=== PATIENT | male | born 1940 | race Caucasian/White ===

== ENCOUNTER 2017-08-17 08:19 | Emergency (ER) | payer MEDICARE, BC ==
[~2017-08-17] VITALS: Ht 175.3 cm; Wt 71.4 kg
[~2017-08-17 08:19] MED LIST: ANTIVERT 25MG25 MG PO; CALCIUM CARBON500 M1 PO; CARDI-OMEGA1000 MG PO; CENTRUM SILVER1 CTB PO; CENTRUM SILVER1 TA1 PO; FISH OIL CONC1000 MG PO; FLOMAX 0.40.4 MG/CAP PO; GEMCOR600 MG PO; LISINOPRIL/HCTZ1 TA2 PO; LISINOPRIL/HCTZ1 TAB PO; MVI; NORCO 325 MG-51 TAB PO; OSTEO-BI-FLEX 21 TAB; OSTEO-BI-FLEX 21 TAB PO; PERCOCET 5/321 UDTAB PO; PRAVACHOL 20MG20 MG PO; PRAVACHOL 40MG40 MG PO; PRILOSEC 20MG20 MG PO; TRAMADOL50 MG PO; TYLENOL 500MG500 MG PO; ZETIA 10MG TAB10 MG PO; ZETIA10 MG PO; [UNRECOGNIZED DRUG - OTHER] OP; lidocaine patch; osteo biflex
[2017-08-17 08:28] VITALS: TEMP 96.8
[2017-08-17 09:09] LABS: BASO % 0.5 % (0.0-2.0); EOS # 0.1 (0.0-0.7); EOS % 1.3 % (0-4.0); GRAN # 4.1 (1.4-6.5); GRAN % 47.3 % (42.2-75.2); HEMATOCRIT 39.9 % (42.0-52.0); HEMOGLOBIN 13.7 g/dl (13.5-18.0); LYMPH # 3.7 (1.2-3.4); LYMPH % 43.2 % (20.0-51.0); MEAN CELL VOLUME 91 fl (80.0-100.0); MEAN CORPUSCULAR HEMOGLOBIN 31 pg (27.0-31.0); MEAN CORPUSCULAR HGB CONC 34 g/dl (33.0-37.0); MONO # 0.6 (0.1-0.6); MONO % 7.5 % (1.7-9.3); PLATELET COUNT 271 K/mm3 (130-400); RED BLOOD COUNT 4.38 M/mm3 (4.20-5.60); REDCELL DISTRIBUTION WIDTH-CV 12.5 % (11.5-14.5)
[2017-08-17 09:20] LABS: ALANINE AMINOTRANSFERASE 28 U/L (21-72); ALBUMIN 4.1 gm/dL (3.5-5.0); ALKALINE PHOSPHATASE 131 U/L (50-136); ANION GAP 15 mmol/L (7-16); AST,SGOT 29 U/L (15-37); BILIRUBIN,TOTAL 0.6 mg/dL (0.0-1.0); BLOOD UREA NITROGEN 17 mg/dL (9-20); CALCIUM 9.2 mg/dL (8.4-10.2); CARBON DIOXIDE 26 mmol/L (22-30); CHLORIDE 104 mmol/L (98-107); CREATININE, serum 0.92 mg/dL (0.66-1.25); GLUCOSE 92 mg/dL (74-106); LIPASE 57 U/L (23-300); POTASSIUM 3.9 mmol/L (3.4-5.0); SODIUM 145 mmol/L (137-145); TOTAL PROTEIN 7.7 gm/dL (6.4-8.2)
[2017-08-17] MEDS ORDERED: ULTRAM 50MG TAB50 MG PO (09:20)
[2017-08-17] MEDS ORDERED: FLOMAX 0.40.4 MG/CAP PO (09:20)
[2017-08-17] MEDS ORDERED: PRILOSEC 20MG20 MG PO (09:21)
[2017-08-17] MEDS ORDERED: MULTI VITAMINS1 TAB PO (09:21)
[2017-08-17] MEDS ORDERED: PRAVACHOL 40MG40 MG PO (09:21)
[2017-08-17] MEDS ORDERED: NORCO 325 MG-51 TAB PO (09:22)
[2017-08-17] MEDS ORDERED: PRINZIDE 12.5 M1 TAB PO (09:22)
[2017-08-17] MEDS ORDERED: ZETIA 10MG TAB10 MG PO (09:23)
[2017-08-17] MEDS ORDERED: ZYRTEC 10MG10 MG PO (09:23)
[2017-08-17] MEDS ORDERED: TEMOVATE0.05% TP (09:23)
[2017-08-17] MEDS ORDERED: LOPID 600M600 MG/TAB PO (09:23)
[2017-08-17] MEDS ORDERED: TYLENOL 325MG325 MG PO (09:27)
[2017-08-17] MEDS ORDERED: CALCIUM CARBON650 M2 (09:27)
[2017-08-17] MEDS ORDERED: VITAMINC1000TA (09:27)
[2017-08-17 09:34] LABS: TROPONIN-I < 0.012 ng/mL (0.000-0.034)
[2017-08-17 12:56] VITALS: BP 151/86; PULSE 76
== END 2017-08-17 12:57 | disposition home or self-care (01) ==
LOC: COL.ER 08:19
PROVIDERS: Emergency Medicine
DX: R07.89 Other chest pain (principal); I10 Essential (primary) hypertension; E78.5 Hyperlipidemia, unspecified; K21.9 Gastro-esophageal reflux disease without esophagitis; K58.9 Irritable bowel syndrome, unspecified; Z90.49 Acquired absence of other specified parts of digestive tract; Z90.89 Acquired absence of other organs
CPT/HCPCS: J7030

== ENCOUNTER 2017-10-05 01:26 | Emergency (ER) | payer MEDICARE, BC ==
[~2017-10-05] VITALS: Ht 175.3 cm; Wt 73.6 kg
[~2017-10-05 01:26] MED LIST changes: +CALCIUM CARBON650 M2; +LOPID 600M600 MG/TAB PO; +MULTI VITAMINS1 TAB PO; +PRINZIDE 12.5 M1 TAB PO; +TEMOVATE0.05% TP; +TYLENOL 325MG325 MG PO; +ULTRAM 50MG TAB50 MG PO; +VITAMINC1000TA; +ZYRTEC 10MG10 MG PO
[2017-10-05 01:29] VITALS: TEMP 97.6
[2017-10-05 01:55] LABS: BASO % 0.3 % (0.0-2.0); EOS # 0.2 (0.0-0.7); EOS % 1.7 % (0-4.0); GRAN # 6.8 (1.4-6.5); GRAN % 51.9 % (42.2-75.2); HEMATOCRIT 36.6 % (42.0-52.0); HEMOGLOBIN 12.5 g/dl (13.5-18.0); LYMPH # 4.8 (1.2-3.4); LYMPH % 36.7 % (20.0-51.0); MEAN CELL VOLUME 91 fl (80.0-100.0); MEAN CORPUSCULAR HEMOGLOBIN 31 pg (27.0-31.0); MEAN CORPUSCULAR HGB CONC 34 g/dl (33.0-37.0); MEAN PLATELET VOLUME 9.7 fl (7.4-10.4); MONO # 1.2 (0.1-0.6); MONO % 9.1 % (1.7-9.3); PLATELET COUNT 265 K/mm3 (130-400); RED BLOOD COUNT 4.01 M/mm3 (4.20-5.60); REDCELL DISTRIBUTION WIDTH-CV 12.7 % (11.5-14.5)
[2017-10-05 02:06] LABS: ALANINE AMINOTRANSFERASE 34 U/L (21-72); ALKALINE PHOSPHATASE 114 U/L (50-136); ANION GAP 11 mmol/L (7-16); AST,SGOT 28 U/L (15-37); BILIRUBIN,TOTAL 0.3 mg/dL (0.0-1.0); BLOOD UREA NITROGEN 28 mg/dL (9-20); CALCIUM 9.1 mg/dL (8.4-10.2); CARBON DIOXIDE 28 mmol/L (22-30); CHLORIDE 102 mmol/L (98-107); CREATININE, serum 1.14 mg/dL (0.66-1.25); GLUCOSE 100 mg/dL (74-106); LIPASE 71 U/L (23-300); POTASSIUM 3.7 mmol/L (3.4-5.0); SODIUM 140 mmol/L (137-145); TOTAL PROTEIN 7.3 gm/dL (6.4-8.2)
[2017-10-05 02:07] LABS: C-REACTIVE PROTEIN < 0.5 mg/dL (0.0-0.9)
[2017-10-05 02:15] LABS: TROPONIN-I < 0.012 ng/mL (0.000-0.034)
[2017-10-05 04:00] VITALS: BP 106/76; PULSE 60
[2017-10-05] MEDS ORDERED: MYRBETR50MG PO (04:32)
[2017-10-05] MEDS ORDERED: PRAVACHOL 20MG20 MG PO (04:33)
== END 2017-10-05 04:26 | disposition home or self-care (01) ==
LOC: COL.ER 01:26
PROVIDERS: Emergency Medicine
DX: M54.6 Pain in thoracic spine (principal); I10 Essential (primary) hypertension; E78.5 Hyperlipidemia, unspecified

== ENCOUNTER 2019-06-10 22:53 | Emergency (ER) | payer MEDICARE, BC ==
[~2019-06-10] VITALS: Ht 175.3 cm; Wt 60.0 kg
[~2019-06-10 22:53] MED LIST changes: +MYRBETR50MG PO
[2019-06-10 23:03] VITALS: TEMP 97.6
[2019-06-10 23:49] LABS: BASO % 0.4 % (0.0-2.0); EOS # 0.2 (0.0-0.7); EOS % 1.8 % (0-4.0); GRAN # 4.7 (1.4-6.5); GRAN % 49.8 % (42.2-75.2); HEMATOCRIT 41.5 % (42.0-52.0); HEMOGLOBIN 13.6 g/dl (13.5-18.0); LYMPH # 3.6 (1.2-3.4); LYMPH % 38.2 % (20.0-51.0); MEAN CELL VOLUME 93 fl (80.0-100.0); MEAN CORPUSCULAR HEMOGLOBIN 31 pg (27.0-31.0); MEAN CORPUSCULAR HGB CONC 33 g/dl (33.0-37.0); MEAN PLATELET VOLUME 10.4 fl (7.4-10.4); MONO # 0.9 (0.1-0.6); MONO % 9.6 % (1.7-9.3); PLATELET COUNT 211 K/mm3 (130-400); RED BLOOD COUNT 4.46 M/mm3 (4.20-5.60); REDCELL DISTRIBUTION WIDTH-CV 13.2 % (11.5-14.5)
[2019-06-10 23:58] LABS: PROTHROMBIN TIME 11.5 SECONDS (9.7-12.8)
[2019-06-10 23:59] LABS: POTASSIUM 4.6 mmol/L (3.4-5.0)
[2019-06-11] LABS: PARTIAL THROMBOPLASTIN TIME 34.3 SECONDS (26.0-37.0)
[2019-06-11 00:11] LABS: TROPONIN-I 0.02 ng/mL (0.000-0.035)
[2019-06-11 02:40] VITALS: BP 137/81; PULSE 61
== END 2019-06-11 01:20 | disposition home or self-care (01) ==
LOC: COL.ER 22:53
PROVIDERS: Physician Assistant
DX: R53.1 Weakness (principal); Z90.89 Acquired absence of other organs
CPT/HCPCS: J7040; Q9967

== ENCOUNTER → 2019-06-28 | Outpatient (CLI) | payer MEDICARE, BC | LOC: COL.RAD 08:15 | DX: Z01.812 Encounter for preprocedural laboratory examination (principal); M25.571 Pain in right ankle and joints of right foot; I63.9 Cerebral infarction, unspecified | CPT/HCPCS: A9585 ==

== ENCOUNTER 2019-10-15 10:07 | Emergency (ER) | payer MEDICARE, BC ==
[~2019-10-15] VITALS: Ht 175.3 cm; Wt 73.6 kg
[2019-10-15 10:13] VITALS: TEMP 97.4
[2019-10-15 10:43] LABS: COLLECTION METHOD CLEAN CATCH
[2019-10-15 10:54] LABS: PH 7 (5-8); SQUAMOUS EPITHELIAL None Seen /hpf; URINE APPEARANCE Clear; URINE BACTERIA None Seen /hpf; URINE BILIRUBIN Negative (NEGATIVE); URINE BLOOD Negative (NEGATIVE); URINE COLOR Straw; URINE GLUCOSE Negative (NEGATIVE); URINE KETONE Negative (NEGATIVE); URINE LEUKOCYTE ESTERASE Negative (NEGATIVE); URINE NITRATE Negative (NEGATIVE); URINE PROTEIN(semi-quant) Negative (NEGATIVE); URINE RBC 0-2 /hpf; URINE UROBILINOGEN Negative (NEGATIVE)
[2019-10-15 11:00] LABS: ALBUMIN 4.4 gm/dL (3.5-5.0); BILIRUBIN,TOTAL 0.8 mg/dL (0.0-1.0); CALCIUM 9.5 mg/dL (8.4-10.2); CREATININE, serum 0.97 (0.66-1.25); MAGNESIUM 2.2 mg/dL (1.6-2.3); POTASSIUM 4.3 mmol/L (3.4-5.0); TOTAL PROTEIN 7.7 gm/dL (6.4-8.2)
[2019-10-15 11:08] LABS: BASO % 0.4 % (0.0-2.0); EOS # 0.1 (0.0-0.7); EOS % 0.9 % (0-4.0); GRAN # 5.4 (1.4-6.5); GRAN % 59.4 % (42.2-75.2); HEMOGLOBIN 14.9 g/dl (13.5-18.0); LYMPH # 3.1 (1.2-3.4); LYMPH % 33.9 % (20.0-51.0); MEAN CELL VOLUME 94 fl (80.0-100.0); MEAN CORPUSCULAR HEMOGLOBIN 31 pg (27.0-31.0); MEAN CORPUSCULAR HGB CONC 32 g/dl (33.0-37.0); MEAN PLATELET VOLUME 10.7 fl (7.4-10.4); MONO # 0.5 (0.1-0.6); MONO % 5.1 % (1.7-9.3); PLATELET COUNT 254 K/mm3 (130-400); RED BLOOD COUNT 4.88 M/mm3 (4.20-5.60); REDCELL DISTRIBUTION WIDTH-CV 13.2 % (11.5-14.5)
[2019-10-15 11:11] LABS: TROPONIN-I 0.018 ng/mL (0.000-0.035)
[2019-10-15 15:24] VITALS: BP 174/100; PULSE 62
== END 2019-10-15 15:18 | disposition home or self-care (01) ==
LOC: COL.ER 10:07
PROVIDERS: Emergency Medicine
DX: R42 Dizziness and giddiness (principal); I10 Essential (primary) hypertension
CPT/HCPCS: J7030

== ENCOUNTER 2020-06-25 08:39 | Day surgery (SDC) | payer MEDICARE, BC ==
[~2020-06-25] VITALS: Ht 175.3 cm; Wt 81.9 kg
[2020-06-25] VITALS (15 sets, daily range): BP systolic 142–179; BP diastolic 72–99; PULSE 56–76; TEMP 97.4
[2020-06-25 09:52] LABS: HEMATOCRIT 43.2 % (42.0-52.0); HEMOGLOBIN 14.5 g/dl (13.5-18.0); MEAN CELL VOLUME 92 fl (80.0-100.0); MEAN CORPUSCULAR HEMOGLOBIN 31 pg (27.0-31.0); MEAN CORPUSCULAR HGB CONC 34 g/dl (33.0-37.0); MEAN PLATELET VOLUME 9.9 fl (7.4-10.4); PLATELET COUNT 243 K/mm3 (130-400); RED BLOOD COUNT 4.69 M/mm3 (4.20-5.60); REDCELL DISTRIBUTION WIDTH-CV 13.1 % (11.5-14.5)
[2020-06-25 10:00] LABS: INR 1.1 (0.8-3.0); PROTHROMBIN TIME 12.1 SECONDS (9.7-12.8)
[2020-06-25 10:02] LABS: PARTIAL THROMBOPLASTIN TIME 31.4 SECONDS (26.0-37.0)
[2020-06-25 10:23] LABS: CALCIUM 8.9 mg/dL (8.4-10.2); CREATININE, serum 0.86 (0.66-1.25); POTASSIUM 4.2 mmol/L (3.4-5.0)
[2020-06-25] MEDS ORDERED: ASPIRIN E.C. 8181 MG PO (10:31)
[2020-06-25] MEDS ORDERED: LIPITOR 40MG TA40 MG PO (10:32)
[2020-06-25] MEDS ORDERED: ZESTRIL 5MG5 MG PO (10:32)
[2020-06-25] MEDS ORDERED: NAMENDA 10MG TA10 MG PO (10:32)
--- NOTE | 2020-06-25 11:11 | NUR ---
SEE MERGE DOCUMENTATION FOR MEDICATION ADMINISTRATION TIMES AND INTRA/POST PROCEDURE SEDATION ASSESSMENTS. BARBEAU TEST NEGATIVE; MD ASSESSING PT AND PLANS FOR FEMORAL ACCESS.
[2020-06-25] MEDS ORDERED: LIPITOR 80MG80 MG PO (11:53)
[2020-06-25] MEDS ORDERED: NORVASC2.5 MG PO (11:54)
--- NOTE | 2020-06-25 15:12 | NUR ---
Pt has c/o urge to void over last hr, with no success using urinal. Bladder scan completed with read of 339 ml.
--- NOTE | 2020-06-25 17:10 | NUR ---
DC instructions reviewed with pt and , both express understanding. Pt was able to use urinal with success at this time, giving him relief. He will continue with final hour of bedrest. Report given to GLADYS Lynn, so she may take over pt cares while he remains in the [place], prior to his discharge. Written rx for nitro given to pt's , and copy placed in chart.
--- NOTE | 2020-06-25 17:29 | NUR ---
Pt accidently pulled IV out at this time, while also unhooking himself from BP and SPO2 monitors just after staff and his had stepped out of room. Bleeding controlled at IV site, and it is wrapped with coban. Pt reoriented and BP cuff reapplied. now at bedside.
--- NOTE | 2020-06-25 18:30 | NUR ---
Pt getting dressed and getting car to transport home.
--- NOTE | 2020-06-25 18:50 | NUR ---
Transferred to private car by malgorzata
== END 2020-06-25 18:50 | disposition home or self-care (01) ==
LOC: COL.CAR 08:39
PROVIDERS: Internal Medicine Cardiovascular Disease
DX: I25.10 Atherosclerotic heart disease of native coronary artery without angina pectoris (principal); R55 Syncope and collapse; K21.9 Gastro-esophageal reflux disease without esophagitis; E78.5 Hyperlipidemia, unspecified; I12.9 Hypertensive chronic kidney disease with stage 1 through stage 4 chronic kidney disease, or unspecified chronic kidney disease; E78.00 Pure hypercholesterolemia, unspecified; N18.2 Chronic kidney disease, stage 2 (mild); K58.9 Irritable bowel syndrome, unspecified; C95.10 Chronic leukemia of unspecified cell type not having achieved remission; Z90.89 Acquired absence of other organs; Z90.49 Acquired absence of other specified parts of digestive tract; Z88.5 Allergy status to narcotic agent; Z88.1 Allergy status to other antibiotic agents; Z20.822 Contact with and (suspected) exposure to COVID-19; Z79.899 Other long term (current) drug therapy; Z80.0 Family history of malignant neoplasm of digestive organs
CPT/HCPCS: C1760; C1769; C1894; J1644; J2250; J3010; L1830; Q9967

== ENCOUNTER → 2020-07-01 | Outpatient (CLI) | payer MEDICARE, BC ==
[~2020-07-01] MED LIST changes: +ASPIRIN E.C. 8181 MG PO; +CENTRUM SILVER1 TAB; +IMDUR 30MG30 MG/TAB PO; +LIPITOR 40MG TA40 MG PO; +LIPITOR 80MG80 MG PO; +MASON NATURAL2000 IU PO; +MIRALAX510G PO; +NAMENDA 10MG TA10 MG PO; +NITROSTAT0.4 MG/TAB SL; +NORVASC2.5 MG PO; +PLAVIX 75MG TAB75 MG PO; +ZESTRIL 5MG5 MG PO
== END ==
LOC: COL.VAS 13:16
DX: I25.10 Atherosclerotic heart disease of native coronary artery without angina pectoris (principal); I51.7 Cardiomegaly; I34.8 Other nonrheumatic mitral valve disorders

== ENCOUNTER 2020-07-27 11:25 | Emergency (ER) | payer MEDICARE, BC ==
[~2020-07-27] VITALS: Ht 175.3 cm; Wt 79.5 kg
[~2020-07-27 11:25] MED LIST changes: -CENTRUM SILVER1 TAB; -IMDUR 30MG30 MG/TAB PO; -MASON NATURAL2000 IU PO; -MIRALAX510G PO; -NITROSTAT0.4 MG/TAB SL; -PLAVIX 75MG TAB75 MG PO
[2020-07-27 11:39] VITALS: TEMP 97.8
[2020-07-27 11:56] LABS: BASO % 0.2 % (0.0-2.0); EOS # 0.1 (0.0-0.7); EOS % 0.7 % (0-4.0); GRAN # 8.8 (1.4-6.5); GRAN % 68.4 % (42.2-75.2); HEMOGLOBIN 14.5 g/dl (13.5-18.0); LYMPH # 3.2 (1.2-3.4); LYMPH % 25.2 % (20.0-51.0); MEAN CELL VOLUME 93 fl (80.0-100.0); MEAN CORPUSCULAR HEMOGLOBIN 31 pg (27.0-31.0); MEAN CORPUSCULAR HGB CONC 33 g/dl (33.0-37.0); MONO # 0.7 (0.1-0.6); MONO % 5.2 % (1.7-9.3); PLATELET COUNT 256 K/mm3 (130-400); RED BLOOD COUNT 4.73 M/mm3 (4.20-5.60); REDCELL DISTRIBUTION WIDTH-CV 12.9 % (11.5-14.5)
[2020-07-27 12:11] LABS: ALANINE AMINOTRANSFERASE 33 U/L (4-49); ALBUMIN 4.3 gm/dL (3.5-5.0); ALKALINE PHOSPHATASE 196 U/L (50-136); ANION GAP 8 mmol/L (7-16); AST,SGOT 49 U/L (15-37); BILIRUBIN,TOTAL 1.1 mg/dL (0.0-1.0); BLOOD UREA NITROGEN 22 mg/dL (9-20); CALCIUM 8.9 mg/dL (8.4-10.2); CARBON DIOXIDE 23 mmol/L (22-30); CHLORIDE 107 mmol/L (98-107); CREATININE, serum 1.01 (0.66-1.25); GLUCOSE 112 mg/dL (74-106); LIPASE 68 U/L (23-300); POTASSIUM 4.3 mmol/L (3.4-5.0); SODIUM 138 mmol/L (137-145); TOTAL PROTEIN 7.7 gm/dL (6.4-8.2)
[2020-07-27 12:22] LABS: TROPONIN-I < 0.012 ng/mL (0.000-0.035)
[2020-07-27 14:20] LABS: COLLECTION METHOD CLEAN CATCH
[2020-07-27 14:30] LABS: MUCOUS Present /lpf; SQUAMOUS EPITHELIAL 0-2 /hpf; URINE BACTERIA Rare /hpf; URINE RBC 0-2 /hpf
[2020-07-27 14:32] LABS: PH 5 (5-8); URINE APPEARANCE Clear; URINE BILIRUBIN Negative (NEGATIVE); URINE BLOOD Negative (NEGATIVE); URINE COLOR Yellow; URINE GLUCOSE Negative (NEGATIVE); URINE KETONE Trace (NEGATIVE); URINE LEUKOCYTE ESTERASE Negative (NEGATIVE); URINE NITRATE Negative (NEGATIVE); URINE PROTEIN(semi-quant) Negative (NEGATIVE); URINE UROBILINOGEN Negative (NEGATIVE)
[2020-07-27 15:12] VITALS: BP 143/87; PULSE 69
== END 2020-07-27 15:15 | disposition home or self-care (01) ==
LOC: COL.ER 11:25
PROVIDERS: Emergency Medicine
DX: R19.7 Diarrhea, unspecified (principal); Z79.82 Long term (current) use of aspirin; Z88.2 Allergy status to sulfonamides; Z88.5 Allergy status to narcotic agent; Z85.828 Personal history of other malignant neoplasm of skin
CPT/HCPCS: J2405; J7030; Q9967

== ENCOUNTER → 2020-07-28 | Outpatient (CLI) | payer MEDICARE, BC ==
[~2020-07-28] MED LIST changes: +CENTRUM SILVER1 TAB; +IMDUR 30MG30 MG/TAB PO; +MASON NATURAL2000 IU PO; +MIRALAX510G PO; +NITROSTAT0.4 MG/TAB SL; +PLAVIX 75MG TAB75 MG PO
== END ==
LOC: ZCOL.LAB 10:16
DX: Z20.822 Contact with and (suspected) exposure to COVID-19 (principal)

== ENCOUNTER 2020-08-03 11:08 | Emergency (ER) | payer MEDICARE, BC ==
[~2020-08-03] VITALS: Ht 175.3 cm; Wt 79.1 kg
[~2020-08-03 11:08] MED LIST changes: -CENTRUM SILVER1 TAB; -IMDUR 30MG30 MG/TAB PO; -MASON NATURAL2000 IU PO; -MIRALAX510G PO; -NITROSTAT0.4 MG/TAB SL; -PLAVIX 75MG TAB75 MG PO
[2020-08-03 11:18] VITALS: TEMP 98.2
[2020-08-03 11:49] LABS: BASO % 0.4 % (0.0-2.0); EOS # 0.2 (0.0-0.7); EOS % 1.7 % (0-4.0); GRAN # 6.2 (1.4-6.5); GRAN % 59.8 % (42.2-75.2); HEMOGLOBIN 12.9 g/dl (13.5-18.0); LYMPH # 3.2 (1.2-3.4); LYMPH % 30.5 % (20.0-51.0); MEAN CELL VOLUME 92 fl (80.0-100.0); MEAN CORPUSCULAR HEMOGLOBIN 31 pg (27.0-31.0); MEAN CORPUSCULAR HGB CONC 34 g/dl (33.0-37.0); MEAN PLATELET VOLUME 10.5 fl (7.4-10.4); MONO # 0.8 (0.1-0.6); MONO % 7.2 % (1.7-9.3); PLATELET COUNT 230 K/mm3 (130-400); RED BLOOD COUNT 4.14 M/mm3 (4.20-5.60); REDCELL DISTRIBUTION WIDTH-CV 13.3 % (11.5-14.5)
[2020-08-03 11:55] LABS: ALBUMIN 3.8 gm/dL (3.5-5.0); BILIRUBIN,TOTAL 0.6 mg/dL (0.0-1.0); CALCIUM 8.9 mg/dL (8.4-10.2); CREATININE, serum 0.77 (0.66-1.25); POTASSIUM 3.4 mmol/L (3.4-5.0); TOTAL PROTEIN 6.8 gm/dL (6.4-8.2)
[2020-08-03 12:18] LABS: COLLECTION METHOD CLEAN CATCH
[2020-08-03 12:23] LABS: PH 7 (5-8); SQUAMOUS EPITHELIAL None Seen /hpf; URINE APPEARANCE Clear; URINE BACTERIA None Seen /hpf; URINE BILIRUBIN Negative (NEGATIVE); URINE BLOOD Negative (NEGATIVE); URINE COLOR Colorless; URINE GLUCOSE Negative (NEGATIVE); URINE KETONE Negative (NEGATIVE); URINE LEUKOCYTE ESTERASE Negative (NEGATIVE); URINE NITRATE Negative (NEGATIVE); URINE PROTEIN(semi-quant) Negative (NEGATIVE); URINE RBC 0-2 /hpf; URINE UROBILINOGEN Negative (NEGATIVE)
[2020-08-03 12:27] LABS: TROPONIN-I 0.13 ng/mL (0.000-0.035)
[2020-08-03 16:39] LABS: PARTIAL THROMBOPLASTIN TIME 99.9 SECONDS (26.0-37.0)
[2020-08-03 16:45] VITALS: BP 136/77; PULSE 86
== END 2020-08-03 16:45 | disposition short-term general hospital (02) ==
LOC: COL.ER 11:08
PROVIDERS: Emergency Medicine
DX: I20.0 Unstable angina (principal); I25.10 Atherosclerotic heart disease of native coronary artery without angina pectoris; I10 Essential (primary) hypertension; E78.5 Hyperlipidemia, unspecified; Z88.2 Allergy status to sulfonamides; Z88.6 Allergy status to analgesic agent; Z79.82 Long term (current) use of aspirin
CPT/HCPCS: J0360; J1644

== ENCOUNTER 2020-09-30 12:37 | Emergency (ER) | payer MEDICARE, BC ==
[~2020-09-30] VITALS: Ht 175.3 cm; Wt 79.5 kg
[2020-09-30 13:08] VITALS: TEMP 97.8
[2020-09-30] MEDS ORDERED: MIRALAX510G PO (13:43)
[2020-09-30 15:09] VITALS: BP 164/87; PULSE 78
== END 2020-09-30 15:20 | disposition home or self-care (01) ==
LOC: COL.ER 12:37
DX: K59.00 Constipation, unspecified (principal); N40.0 Benign prostatic hyperplasia without lower urinary tract symptoms; G30.9 Alzheimer's disease, unspecified; I10 Essential (primary) hypertension; E78.5 Hyperlipidemia, unspecified; Z90.49 Acquired absence of other specified parts of digestive tract; Z79.899 Other long term (current) drug therapy

== ENCOUNTER 2020-10-09 09:16 | Day surgery (SDC) | payer MEDICARE, BC ==
[~2020-10-09] VITALS: Ht 175.3 cm; Wt 72.5 kg
[~2020-10-09 09:16] MED LIST changes: +MIRALAX510G PO
[2020-10-09 10:35] VITALS: BP 149/75; PULSE 71; TEMP 98.5
[2020-10-09] MEDS ORDERED: TYLENOL 325MG325 MG PO (10:44)
[2020-10-09] MEDS ORDERED: MASON NATURAL2000 IU PO (10:46)
[2020-10-09] MEDS ORDERED: PLAVIX 75MG TAB75 MG PO (10:47)
[2020-10-09] MEDS ORDERED: IMDUR 30MG30 MG/TAB PO (10:48)
[2020-10-09] MEDS ORDERED: CENTRUM SILVER1 TAB (10:49)
[2020-10-09] MEDS ORDERED: NITROSTAT0.4 MG/TAB SL (10:50)
[2020-10-09 11:45] VITALS: BP 139/68; PULSE 55; TEMP 97.5
--- NOTE | 2020-10-09 11:45 | NUR ---
Pt returns to [facility] from [facility], ambulates easily to the recliner. Awake and alert. VSS. Muffin and water provided. is at bedside. Call light in reach.
[2020-10-09 12:00] VITALS: BP 138/80; PULSE 62
--- NOTE | 2020-10-09 12:00 | NUR ---
Pt denies pain or nausea, VSS.
[2020-10-09 12:15] VITALS: BP 114/86; PULSE 56
--- NOTE | 2020-10-09 12:15 | NUR ---
Pt doing well, ready for discharge.
--- NOTE | 2020-10-09 12:35 | NUR ---
Discharge instructions provided to and pt. 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 IV discontinued to right wrist. Pt taken to private car via wheelchair at this time and left in care of his .
== END 2020-10-09 12:50 | disposition home or self-care (01) ==
LOC: SDCO 09:16
DX: K26.4 Chronic or unspecified duodenal ulcer with hemorrhage (principal); R19.4 Change in bowel habit; R19.5 Other fecal abnormalities; K22.2 Esophageal obstruction; K57.30 Diverticulosis of large intestine without perforation or abscess without bleeding; K21.9 Gastro-esophageal reflux disease without esophagitis; K58.8 Other irritable bowel syndrome; D50.0 Iron deficiency anemia secondary to blood loss (chronic); E78.5 Hyperlipidemia, unspecified; I10 Essential (primary) hypertension; Z20.822 Contact with and (suspected) exposure to COVID-19; Z79.899 Other long term (current) drug therapy; Z79.02 Long term (current) use of antithrombotics/antiplatelets; Z85.6 Personal history of leukemia; Z90.49 Acquired absence of other specified parts of digestive tract; Z90.89 Acquired absence of other organs
CPT/HCPCS: J2704; J7120